=== PATIENT | female | born 1970 | race African-American/Black ===

== ENCOUNTER 2022-10-29 11:39 | Inpatient (IN) | payer OTHER ==
[2022-10-29 13:20] VITALS: BMI 20.1
[2022-10-29] MEDS ORDERED: IBUPROFEN 600 MG TABLET (FP) PO PRN (15:29)
[2022-10-29] MEDS ORDERED: hydrOXYzine PAMOATE 25 MG CAPSULE (FP) PO PRN (15:29)
[2022-10-29] MEDS ORDERED: MAG HYDROX/AL HYDROX/SIMETH 30 ML UNIT-DOSE CUP PO PRN (15:29)
[2022-10-29] MEDS ORDERED: MAGNESIUM HYDROX 2400MG/30ML ORAL SUSPENSION 30 ML CUP PO PRN (15:29)
[2022-10-29] MEDS ORDERED: POLYETHYLENE GLYCOL (HEALTHYLAX) 3350 17 GM PACKET PO PRN (15:29)
[2022-10-29] MEDS ORDERED: BENZOCAINE/MENTHOL (CHLORASEPTIC ) LOZENGE MM PRN (15:29)
[2022-10-29] MEDS ORDERED: IBUPROFEN 400 MG TABLET (FP) PO PRN (15:29)
[2022-10-29] MEDS ORDERED: NICOTINE 10 MG CARTRIDGE (INHALER) IH PRN (15:29)
[2022-10-29] MEDS ORDERED: BENZONATATE 200 MG CAPSULE PO PRN (15:29)
[2022-10-29] MEDS ORDERED: ONDANSETRON *ODT* 4 MG TABLET SL PRN (15:29)
[2022-10-29] MEDS ORDERED: DICYCLOMINE HCL 10 MG CAPSULE PO PRN (15:29)
[2022-10-29] MEDS ORDERED: ACETAMINOPHEN 325 MG TABLET (FP) PO PRN (15:29)
[2022-10-29] MEDS ORDERED: LOPERAMIDE HCL 2 MG CAPSULE PO PRN (15:29)
[2022-10-29] MEDS ORDERED: guaiFENesin 600 MG TABLET.ER (FP) PO PRN (15:29)
[2022-10-29] MEDS ORDERED: BISMUTH SUBSALICYLATE 262 MG/15 ML BTL PO PRN (15:29)
[2022-10-29] MEDS: NICOTINE 14 MG/24 HOURS TOPICAL PATCH TD SCH (18:27)
[2022-10-29] MEDS ORDERED: MELATONIN 5 MG TABLETS PO SCH (22:00)
[2022-10-29] MEDS ORDERED: THIAMINE HCL 100 MG TABLET (FP) PO SCH (22:00)
[2022-10-30 09:52] VITALS: TEMP 98.1
[2022-10-30] MEDS: NICOTINE 14 MG/24 HOURS TOPICAL PATCH TD SCH (10:02)
[2022-10-30 11:38] LABS: HEMATOCRIT 38.3 % (32.4-45.2); MCH 31.3 pg (25.7-33.7); MEAN CELL VOLUME 92.1 fl (80-96); MEAN PLT VOLUME 8.9 fl (7.5-11.1); PLATELET COUNT 297 10^3/uL (134-434); RBC 4.15 M/mm3 (3.60-5.2); RDW 14.6 % (11.6-15.6); WHITE BLOOD COUNT 4.8 K/mm3 (4.0-10.0)
[2022-10-30 11:49] LABS: ALBUMIN 2.8 g/dl (3.4-5.0); BLOOD UREA NITROGEN 16.1 mg/dL (7-18); CALCIUM 8.9 mg/dL (8.5-10.1)
[2022-10-30 11:53] LABS: CREATININE 0.8 mg/dL (0.55-1.3)
[2022-10-30 11:54] LABS: BILIRUBIN,TOTAL 0.5 mg/dL (0.2-1); TOT PROT 6.6 g/dl (6.4-8.2)
[2022-10-30 14:27] VITALS: BP 137/79; PULSE 52; RESP 16
[2022-10-30] MEDS ORDERED: traZODone HCL 50 MG TABLET (FP) PO SCH (22:00)
[2022-10-30] MEDS ORDERED: QUEtiapine FUMARATE 200 MG TABLET PO SCH (22:00)
== END 2022-10-30 18:20 | disposition other institution (70) | DRG 774 ==
LOC: YASAS 11:39 → Y6N 16:23
PROVIDERS: ADMIT Allergy & Immunology; ATTEND Surgery
PROC: HZ2ZZZZ Detoxification Services for Substance Abuse Treatment (ICD-10-PCS; principal; 2022-10-29)
DX: F14.20 Cocaine dependence, uncomplicated (principal); F12.20 Cannabis dependence, uncomplicated; F17.210 Nicotine dependence, cigarettes, uncomplicated; F19.282 Other psychoactive substance dependence with psychoactive substance-induced sleep disorder; F31.9 Bipolar disorder, unspecified; F20.0 Paranoid schizophrenia; B20 Human immunodeficiency virus [HIV] disease; E78.5 Hyperlipidemia, unspecified; M17.12 Unilateral primary osteoarthritis, left knee; Z62.810 Personal history of physical and sexual abuse in childhood; Z91.410 Personal history of adult physical and sexual abuse; Z86.19 Personal history of other infectious and parasitic diseases; Z79.899 Other long term (current) drug therapy
CPT/HCPCS: 36415; 80053; 81025; 85027; 86780; C9803-CS; U0003; U0005

== ENCOUNTER 2022-10-30 18:48 | Inpatient (IN) | payer OTHER ==
[2022-10-30] MEDS ORDERED: NICOTINE 10 MG CARTRIDGE (INHALER) IH PRN (20:15)
[2022-10-30] MEDS ORDERED: AMMONIUM LACTATE 12% LOTION 225 GM BOTTLE TP PRN (20:15)
[2022-10-30] MEDS ORDERED: IBUPROFEN 400 MG TABLET (FP) PO PRN (20:15)
[2022-10-30] MEDS ORDERED: BENZOCAINE/MENTHOL (CHLORASEPTIC ) LOZENGE MM PRN (20:15)
[2022-10-30] MEDS ORDERED: IBUPROFEN 600 MG TABLET (FP) PO PRN (20:15)
[2022-10-30] MEDS ORDERED: COLLOIDAL OATMEAL 1 BAR EACH TP PRN (20:15)
[2022-10-30] MEDS ORDERED: NALOXONE HCL (KLOXXADO) 8 MG SPRAY NS PRN (20:15)
[2022-10-30] MEDS ORDERED: guaiFENesin 600 MG TABLET.ER (FP) PO PRN (20:15)
[2022-10-30] MEDS ORDERED: hydrOXYzine PAMOATE 25 MG CAPSULE (FP) PO PRN (20:15)
[2022-10-30] MEDS ORDERED: BENZONATATE 200 MG CAPSULE PO PRN (20:15)
[2022-10-30] MEDS ORDERED: LOPERAMIDE HCL 2 MG CAPSULE PO PRN (20:15)
[2022-10-30] MEDS ORDERED: MAG HYDROX/AL HYDROX/SIMETH 30 ML UNIT-DOSE CUP PO PRN (20:15)
[2022-10-30] MEDS ORDERED: ACETAMINOPHEN 325 MG TABLET (FP) PO PRN (20:15)
[2022-10-30] MEDS ORDERED: POLYETHYLENE GLYCOL (HEALTHYLAX) 3350 17 GM PACKET PO PRN (20:15)
[2022-10-30] MEDS ORDERED: NALOXONE HCL 0.4 MG/ML VIAL IM PRN (20:15)
[2022-10-30] MEDS ORDERED: MAGNESIUM HYDROX 2400MG/30ML ORAL SUSPENSION 30 ML CUP PO PRN (20:15)
[2022-10-30] MEDS: MELATONIN 5 MG TABLETS PO SCH (21:24)
[2022-10-30] MEDS: THIAMINE HCL 100 MG TABLET (FP) PO SCH (21:25)
[2022-10-30] MEDS ORDERED: QUEtiapine FUMARATE 200 MG TABLET PO ONE (22:00)
[2022-10-31] MEDS: PRENATAL VITAMINS W/ FOLIC ACID TABLET (FP) PO SCH (09:43)
[2022-10-31 11:14] LABS: URINE APPEARANCE CLEAR; URINE BILIRUBIN NEGATIVE (NEGATIVE); URINE COLOR YELLOW; URINE GLUCOSE (UA) NEGATIVE (NEGATIVE); URINE KETONE NEGATIVE (NEGATIVE); URINE LEUK ESTERASE NEGATIVE (NEGATIVE); URINE NITRITE NEGATIVE (NEGATIVE); URINE PROTEIN TRACE (NEGATIVE); URINE UROBILINOGEN 0.2 mg/dL (0.2-1.0)
[2022-10-31] MEDS: ACYCLOVIR 400 MG TABLET PO SCH ×2 (14:28→21:11)
[2022-10-31] MEDS: BICTEGRAV/EMTRICIT/TENOFOV (BIKTARVY) 50-200-25 MG TABLET PO SCH (14:28)
[2022-10-31] MEDS: MELATONIN 5 MG TABLETS PO SCH (21:11)
[2022-10-31] MEDS: THIAMINE HCL 100 MG TABLET (FP) PO SCH (21:11)
[2022-10-31] MEDS ORDERED: traZODone HCL 50 MG TABLET (FP) PO SCH (22:00)
[2022-10-31] MEDS ORDERED: QUEtiapine FUMARATE 200 MG TABLET PO SCH (22:00)
[2022-11-01] MEDS: ACYCLOVIR 400 MG TABLET PO SCH (06:30)
[2022-11-01 07:28] VITALS: BP 100/54; PULSE 58; RESP 16; TEMP 98
[2022-11-01] MEDS: BICTEGRAV/EMTRICIT/TENOFOV (BIKTARVY) 50-200-25 MG TABLET PO SCH (07:56)
[2022-11-01] MEDS: PRENATAL VITAMINS W/ FOLIC ACID TABLET (FP) PO SCH (10:03)
[2022-11-01] MEDS: LIDOCAINE HCL 5% TOP OINTMENT 50 GM TUBE TP SCH ×2 (13:09→13:10)
[2022-11-01] MEDS ORDERED: SUVOREXANT 5 MG TABLET PO PRN (22:00)
== END 2022-11-01 13:25 | disposition left against medical advice (07) | DRG 770 ==
LOC: YASAS 18:48 → Y5N 18:50
PROVIDERS: ADMIT Allergy & Immunology; ATTEND Psychiatry & Neurology Pain Medicine
PROC: HZ42ZZZ Group Counseling for Substance Abuse Treatment, Cognitive-Behavioral (ICD-10-PCS; principal; 2022-10-30)
DX: F11.20 Opioid dependence, uncomplicated (principal); F14.20 Cocaine dependence, uncomplicated; F12.20 Cannabis dependence, uncomplicated; F17.210 Nicotine dependence, cigarettes, uncomplicated; F20.0 Paranoid schizophrenia; F42.9 Obsessive-compulsive disorder, unspecified; E78.5 Hyperlipidemia, unspecified; G56.03 Carpal tunnel syndrome, bilateral upper limbs; M17.0 Bilateral primary osteoarthritis of knee; Z79.899 Other long term (current) drug therapy
CPT/HCPCS: 36415; 81003; 86803